=== PATIENT | female | born 1985 | race Caucasian/White ===

== ENCOUNTER → 2020-01-01 16:27 | Outpatient (REF) | payer OTHER, SELFPAY | LOC: ANHLAB 16:27 | PROVIDERS: PCP Family Medicine; Visit Provider Nurse Practitioner | DX: D22.5 Melanocytic nevi of trunk (principal) | CPT/HCPCS: 88305 ==

== ENCOUNTER → 2021-01-06 13:38 | Outpatient (REF) | payer OTHER, SELFPAY | LOC: ANHLAB 13:38 | PROVIDERS: PCP Family Medicine; Visit Provider Nurse Practitioner | DX: C44.311 Basal cell carcinoma of skin of nose (principal) | CPT/HCPCS: 88305 ==

== ENCOUNTER → 2021-03-03 07:48 | Outpatient (REF) | payer OTHER, SELFPAY | LOC: ANHLAB 07:48 | PROVIDERS: PCP Family Medicine; Visit Provider Nurse Practitioner | DX: C44.311 Basal cell carcinoma of skin of nose (principal) | CPT/HCPCS: 88305; 88331 ==

== ENCOUNTER → 2021-09-30 14:53 | Outpatient (REF) | payer OTHER, SELFPAY | LOC: ANHLAB 14:53 | PROVIDERS: PCP Family Medicine; Visit Provider Nurse Practitioner | DX: D49.2 Neoplasm of unspecified behavior of bone, soft tissue, and skin (principal) | CPT/HCPCS: 88305 ==